=== PATIENT | male | born 1975 | race Two or more races ===

== ENCOUNTER 2017-04-26 08:27 | Emergency (ER) | payer OTHER ==
[~2017-04-26] VITALS: Ht 172.7 cm; Wt 108.9 kg
[2017-04-26 08:33] VITALS: BP 118/70
== END 2017-04-26 08:54 | disposition home or self-care (01) ==
LOC: ER 08:36
DX: J20.9 Acute bronchitis, unspecified (principal)
CPT/HCPCS: 99283; A4606; Z7610

== ENCOUNTER 2018-06-20 12:28 | Emergency (ER) | payer OTHER ==
[~2018-06-20] VITALS: Ht 175.3 cm; Wt 108.9 kg
[2018-06-20 12:36] VITALS: BP 128/78
--- NOTE | 2018-06-20 13:33 | NUR ---
Patient discharged to home in stable condition. Written and verbal after care instructions given. Patient verbalizes understanding of instruction.
== END 2018-06-20 13:33 | disposition home or self-care (01) ==
LOC: ER 12:34
DX: R42 Dizziness and giddiness (principal)

== ENCOUNTER 2022-02-03 17:42 | Emergency (ER) | payer BC, OTHER ==
[~2022-02-03] VITALS: Ht 172.7 cm; Wt 117.9 kg
[2022-02-03 18:02] VITALS: BP 131/74
[2022-02-03] MEDS ORDERED: IBUPROFEN 600 MG TABLET PO ONE (19:00)
[2022-02-03] MEDS ORDERED: IBUPROFEN 600 MG TABLET ONE (19:21)
--- NOTE | 2022-02-03 19:26 | NUR ---
COVID SWAB AND FLU SWAB DONE AND SENT TO LAB
--- NOTE | 2022-02-03 20:34 | NUR ---
CALLED LAB TO F/U WITH COVID AND FLU RESULTS.
[2022-02-03] MEDS ORDERED: IBUP-1957 PO ×2 (21:07→21:24)
--- NOTE | 2022-02-03 21:29 | NUR ---
Patient discharged to home in stable condition. Written and verbal after care instructions given. Patient verbalizes understanding of instruction. Pt ambulatory with a steady gait
== END 2022-02-03 21:29 | disposition home or self-care (01) ==
LOC: ER 17:48
DX: B34.9 Viral infection, unspecified (principal); Z20.822 Contact with and (suspected) exposure to COVID-19; E66.01 Morbid (severe) obesity due to excess calories; Z68.39 Body mass index [BMI] 39.0-39.9, adult
CPT/HCPCS: 99283; 87426; 87804; C9803